=== PATIENT | female | born 1960 | race American Indian/Alaskan Native ===

== ENCOUNTER 2019-04-28 15:56 | Emergency (ER) | payer BC ==
--- NOTE | 2019-04-28 16:23 | EDM.PDOC ---
ED HPI GENERAL MEDICAL PROBLEM - General Chief Complaint: Gastrointestinal Problem Stated Complaint: FLU-LIKE SYMTOMS Time Seen by Provider: 04/28/19 16:20 Source of Information: Reports: Patient History Limitations: Reports: No Limitations - History of Present Illness INITIAL COMMENTS - FREE TEXT/NARRATIVE: patient presents with concern for ongoing diarrhea, feeling weak and unwell since last . A friend was sick with similar symptoms, as was her son, but both of them seemed to have improved. Symptoms included fever, slight runny nose, severe headache and pain behind her eyes, feeling short of breath, not really coughing. Feels a bit lightheaded when she gets up. Fever up to 101.6, but that has been gone since Saturday. Mostly now she has ongoing diarrhea , and some lower abdominal cramping. Every time she eats something, it seems to just come out the other side. No blood. Not foul smelling. Has had some mild nausea and some dry heaves, but that is less an issue now. She states her brain feels a little foggy and everything feels dry all over. No recent travel or different foods. History of gastric bypass. Remote history of (I think) NSAID induced ulcers, does not take NSAIDs now. No urinary symptoms, increased frequency or urgency. No abnormal vaginal discharge. Generalized Pain Score (Numeric/FACES): 4 - Related Data Allergies Allergy/AdvReac Type Severity Reaction Status Date / Time No Known Allergies Allergy Verified 04/28/19 17:24 Home Meds: Home Meds Cholecalciferol (Vitamin D3) [Vitamin D3] 1,000 unit PO DAILY 09/23/18 [History] Cyanocobalamin (Vitamin B-12) [B-12] 1,000 mcg PO DAILY 09/23/18 [History] Losartan/Hydrochlorothiazide [Losartan-HCTZ 100-25 MG] 1 each PO DAILY 09/23/18 [History] Magnesium Oxide [Magnesium] 400 mg PO DAILY 09/23/18 [History] Multivitamin with Minerals [Multiple Vitamin] 1 tab PO DAILY 09/23/18 [History] [place]-3/DHA/Epa/Fish Oil [[place]-3 Fish Oil 1,000 MG Sfgl] 1,000 mg PO DAILY 05/05 [History] amLODIPine Besylate [Amlodipine Besylate] 5 mg PO DAILY 11/06/18 [History] Past Medical History HEENT History: Reports: None Cardiovascular History: Reports: Hypertension Respiratory History: Reports: None Gastrointestinal History: Reports: Colon Polyp Genitourinary History: Reports: Renal Calculus DUST 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: Musculoskeletal History: Reports: Arthritis Neurological History: Reports: None Psychiatric History: Reports: None Endocrine/Metabolic History: Reports: Obesity/BMI 30+ Hematologic History: Reports: Anemia, Iron Deficiency Immunologic History: Reports: None Oncologic (Cancer) History: Reports: None Dermatologic History: Reports: None - Past Surgical History Head Surgeries/Procedures: Reports: None HEENT Surgical History: Reports: None Cardiovascular Surgical History: Reports: None Respiratory Surgical History: Reports: None GI Surgical History: Reports: Bariatric Procedure (2000, possible Lacey?), Colonoscopy, EGD Male Surgical History: Reports: Lithotripsy ([facility]) Endocrine Surgical History: Reports: None Neurological Surgical History: Reports: None Musculoskeletal Surgical History: Reports: None Oncologic Surgical History: Reports: None Social & Family History - Family History Family Medical History: Noncontributory - Tobacco Use Smoking Status *Q: Never Smoker - Caffeine Use Caffeine Use: Reports: Coffee, Tea - Alcohol Use Alcohol Use History: No Alcohol Use Comment: rare social - Recreational Drug Use Recreational Drug Use: No - Living Situation & Occupation Living situation: Reports: (lives with ) ED ROS GENERAL - Review of Systems Review Of Systems: See Below Constitutional: Reports: Fever (not since Saturday ), Chills, Malaise, Weakness, Fatigue, Decreased Appetite. Denies: Diaphoresis HEENT: Reports: Rhinitis. Denies: Throat Pain, Vertigo, Vision Change Respiratory: Reports: Shortness of Breath. Denies: Wheezing, Pleuritic Chest Pain, Cough Cardiovascular: Denies: Chest Pain, Palpitations, Syncope Endocrine: Denies: Polydypsia GI/Abdominal: Reports: Abdominal Pain, Diarrhea, Decreased Appetite, Nausea : Reports: No Symptoms Musculoskeletal: Reports: Muscle Pain Skin: Reports: No Symptoms Neurological: Reports: Headache. Denies: Confusion, Numbness, Tingling, Weakness, Gait Disturbance Hematologic/Lymphatic: Denies: Easy Bleeding, Easy Bruising Immunologic: Reports: No Symptoms ED EXAM, GENERAL - Physical Exam Exam: See Below Free Text/Narrative:: General: alert, no acute distress. tympanic membranes are clear bilaterally with normal light reflex and throat is without erythema, mucus membranes are moist. No sinus tenderness, no cervical lymphadenopathy. Lungs clear, no wheezes or crackles, good air movement in all harrison. Heart regular, no murmur heard. Abdomen + bowel sounds, soft, nondistended nontender, no rebound, negative ayoub's and McBurney's point. Peripheral pulses +2 in both upper and lower extremities, no lower extremity edema. Gait normal and strength equal side to side. No joint swelling and no skin lesions or rashes. Course - Vital Signs Text/Narrative:: initial impression - influenza like illness, no fever since Saturday, but still having copious diarrhea. Discussed convalescent phase of illness. She doesn't seem intravascularly dry, but we opted to start some IVF to see if will help her feel better. Will get labs also - CBC, BMP. Last Recorded V/S: Last Vital Signs Temp 36.8 C 04/28/19 17:25 Pulse 92 04/28/19 22:00 Resp 18 04/28/19 22:00 BP 102/72 04/28/19 22:00 Pulse Ox 100 04/28/19 22:00 - Orders/Labs/Meds Labs: Laboratory Tests 04/28/19 04/28/19 04/28/19 Range/Units 17:15 17:15 17:15 WBC 8.8 (4.5-12.0) X10-3/uL RBC 3.90 (3.23-5.20) x10(6)uL Hgb 12.3 (11.5-15.5) g/dL Hct 35.6 (30.0-51.3) % MCV 91.5 (80-96) fL MCH 31.7 (27.7-33.6) pg MCHC 34.6 (32.2-35.4) g/dL RDW 11.9 (11.5-15.5) % Plt Count 415 H (125-369) X10(3)uL MPV 7.4 (7.4-10.4) fL Neut % (Auto) 59.9 (46-82) % Lymph % (Auto) 24.7 (13-37) % [place] % (Auto) 12.8 H (4-12) % Eos % (Auto) 2 (1.0-5.0) % Baso % (Auto) 1 (0-2) % Neut # (Auto) 5.3 (1.6-8.3) # Lymph # (Auto) 2.2 (0.6-5.0) # [place] # (Auto) 1.1 (0.0-1.3) # Eos # (Auto) 0.2 (0.0-0.8) # Baso # (Auto) 0.0 (0.0-0.2) # Sodium 138 (135-145) mmol/L Potassium 2.7 L* (3.5-5.3) mmol/L Chloride 101 (100-110) mmol/L Carbon Dioxide 24 (21-32) mmol/L BUN 24 H (7-18) mg/dL Creatinine 1.5 H (0.55-1.02) mg/dL Est Cr Clr Drug Dosing TNP Estimated GFR (MDRD) 35 L (>60) BUN/Creatinine Ratio 16.0 (9-20) Glucose 115 (80-116) mg/dL Calcium 9.7 (8.6-10.2) mg/dL Magnesium 1.8 (1.8-2.5) mg/dL 04/28/19 Range/Units 21:30 WBC (4.5-12.0) X10-3/uL RBC (3.23-5.20) x10(6)uL Hgb (11.5-15.5) g/dL Hct (30.0-51.3) % MCV (80-96) fL MCH (27.7-33.6) pg MCHC (32.2-35.4) g/dL RDW (11.5-15.5) % Plt Count (125-369) X10(3)uL MPV (7.4-10.4) fL Neut % (Auto) (46-82) % Lymph % (Auto) (13-37) % [place] % (Auto) (4-12) % Eos % (Auto) (1.0-5.0) % Baso % (Auto) (0-2) % Neut # (Auto) (1.6-8.3) # Lymph # (Auto) (0.6-5.0) # [place] # (Auto) (0.0-1.3) # Eos # (Auto) (0.0-0.8) # Baso # (Auto) (0.0-0.2) # Sodium (135-145) mmol/L Potassium 3.5 (3.5-5.3) mmol/L Chloride (100-110) mmol/L Carbon Dioxide (21-32) mmol/L BUN (7-18) mg/dL Creatinine (0.55-1.02) mg/dL Est Cr Clr Drug Dosing Estimated GFR (MDRD) (>60) BUN/Creatinine Ratio (9-20) Glucose (80-116) mg/dL Calcium (8.6-10.2) mg/dL Magnesium (1.8-2.5) mg/dL Meds: Medications Discontinued Medications Generic Name Dose Route Start Last Admin Trade Name Freq PRN Reason Stop Dose Admin Sodium Chloride 1,000 mls @ 999 mls/hr 04/28/19 16:48 04/28/19 17:20 Normal Saline IV 04/28/19 17:48 999 mls/hr .BOLUS ONE Administration Potassium Chloride 20 meq/ 100 mls @ 50 mls/hr 04/28/19 18:22 04/28/19 18:30 Premix IV 04/28/19 20:21 50 mls/hr ONETIME ONE Administration Sodium Chloride 1,000 mls @ 125 mls/hr 04/28/19 18:30 04/28/19 21:13 Normal Saline IV 350 mls/hr ASDIRECTED BRYANT Infusion Magnesium Sulfate 2 gm/ Premix 50 mls @ 150 mls/hr 04/28/19 20:36 04/28/19 21 :08 IV 04/28/19 20:55 150 mls/hr ONETIME ONE Administration Ondansetron HCl 8 mg 04/28/19 18:21 04/28/19 18:28 Zofran IVPUSH 04/28/19 18:22 8 mg ONETIME ONE Administration Potassium Chloride 40 meq 04/28/19 18:30 04/28/19 19:28 Klor-Con M20 PO 40 meq DAILY BRYANT Administration - Re-Assessments/Exams Free Text/Narrative Re-Assessment/Exam: 04/28/19 critical lab called - K 2.7. Ordered 20meq K rider and 40meq PO ( zofran to be given first). Bolus running. Free Text/Narrative Re-Assessment/Exam: 04/29/19 patient feeling much better after fluids. Discussed possible admission vs discharge home but would like to see a higher K first. Agreeable to staying for lab draw following K rider. Will order Magnesium in the meantime to help replenish electrolytes. Free Text/Narrative Re-Assessment/Exam: 04/28/19 patient feeling much better, would like to go home. Repeat K 3.5. Probably slightly lower than this due to IV just finishing 30 min ago. Considered home PO supplement but patient is on Losartan, so instead will have recheck in 3 days by PCP. Discharge instructions given, return if worsening or if recurrent fever. She was in agreement with this plan and will call PCP in AM. Departure - Departure Time of Disposition: 21:55 Disposition: Home, Self-Care 01 Condition: Good Clinical Impression: Diarrhea, Hypokalemia - Discharge Information *PRESCRIPTION DRUG MONITORING PROGRAM REVIEWED*: Not Applicable *COPY OF PRESCRIPTION DRUG MONITORING REPORT IN PATIENT RAMANA: Not Applicable Instructions: Diarrhea, Adult, [id number] Referrals: Emily Gomez MOTORCYCLE TECHNICIAN [Primary Care Provider] - Forms: ED Department Discharge Additional Instructions: followup with PCP in about 3 days for a recheck of potassium continue other vitamins diet as tolerated - your diarrhea will probably not improved until you have some solid food, so if you are hungry then can try rice, toast, oatmeal, apples , something gentle to stomach continue to drink lots of fluid
[2019-04-28] MEDS ORDERED: Sodium Chloride 0.9% 1,000 ML IV ONE (16:48)
[2019-04-28] MEDS ORDERED: Ondansetron 4 MG/2 ML SDV IVPUSH ONE (18:21)
[2019-04-28] MEDS ORDERED: Potassium Chloride 20 MEQ in Premix Bag 1 BAG IV ONE (18:22)
[2019-04-28] MEDS ORDERED: Potassium Chloride 20 MEQ Tab.ER PO SCH (18:30)
[2019-04-28] MEDS ORDERED: Sodium Chloride 0.9% 1,000 ML IV SCH (18:30)
[2019-04-28] MEDS ORDERED: Magnesium Sulfate/Water 2 GM in Premix Bag 1 BAG IV ONE (20:36)
== END 2019-04-28 22:13 | disposition home or self-care (01) ==
LOC: FB.ED 15:56
DX: J11.1 Influenza due to unidentified influenza virus with other respiratory manifestations (principal); E87.6 Hypokalemia; R19.7 Diarrhea, unspecified; I10 Essential (primary) hypertension; D50.9 Iron deficiency anemia, unspecified; Z79.899 Other long term (current) drug therapy
CPT/HCPCS: 36415; 80048; 83735; 84132; 85025; 96361; 96365; 96366; 96367; 96375; 99284; A9270; J2405; J3475; J3480; J7030

== ENCOUNTER 2019-09-14 12:56 | Day surgery (SDC) | payer BC ==
[2019-09-14] MEDS ORDERED: Sodium Chloride 0.9% 250 ML IV SCH (13:15)
[2019-09-14] MEDS ORDERED: Lactated Ringers 1,000 ML IV ONE (15:00)
[2019-09-14] MEDS ORDERED: Furosemide 20 MG/2 ML VIAL IVPUSH ONE (15:00)
[2019-09-14] MEDS ORDERED: Midazolam 1 MG/ML 2 ML SDV IV ONE (15:00)
[2019-09-14] MEDS ORDERED: Lidocaine 2% 5 ML SDV INJECT ONE (15:00)
[2019-09-14] MEDS ORDERED: Propofol 200 MG/20 ML SDV IV ONE (15:00)
--- NOTE | 2019-09-14 15:43 | PCM.OPNOTE ---
- General Post-Op/Procedure Note Date of Surgery/Procedure: 09/14/19 Operative Procedure(s): EGD with Biopsy Findings: Acute but non bleeding Gastric Pouch ulcer at anastomosis Pre Op Diagnosis: UGI bleed Post-Op Diagnosis: Acute Gastric Ulcer Anesthesia Technique: MAC Primary Surgeon: David Pan Pathology: Biopsies of Gastric Pouch EBL in mLs: 2 Complications: None Condition: Good Free Text/Narrative:: Intake & Output 09/14/19 09/14/19 09/14/19 06:59 14:59 22:59 Intake Total 0 390 Balance 0 390
--- NOTE | 2019-09-14 21:39 | HP ---
ADMISSION DATE: 09/14/2019 HISTORY OF PRESENT ILLNESS: This 59-year-old female recently developed symptoms of tiredness and dark stools. She was seen in the outpatient clinic today where it was noted that her hemoglobin had dropped from over 12 to less than 10. The patient has been feeling quite tired and somewhat lightheaded even almost to the point of blacking out when she exerts herself. She has been noticing dark stools over the past 3 days and some nausea, although she has been able to eat. The patient notes that approximately 10 days ago, she began taking an anti- inflammatory medication for joint and extremity pain, and before she started taking this medicine, she was feeling well. The patient does have a known history of previous upper GI bleeds related to anti-inflammatory medication in the past. PAST MEDICAL HISTORY: Significant for prior gastric bypass in 2000. Her weight recently has been stable. CURRENT MEDICATIONS: Include; 1. Losartan. 2. Vitamins. 3. Amlodipine. 4. More recently, meloxicam. REVIEW OF SYSTEMS: She has otherwise generally been feeling well with no recent cough, cold, or sore throat symptoms. Bowel function has generally been satisfactory and she has not been experiencing any abdominal pain. She does have chronic recurring joint pain from arthritis and bursitis. PHYSICAL EXAMINATION: VITAL SIGNS: Her temperature is 98.2, pulse 68, blood pressure is 112/74. GENERAL: The patient is alert, adult female. She is in no acute distress. HEENT: Head is normocephalic. No scleral icterus. HEART: Regular. LUNGS: Clear. ABDOMEN: Soft. Nontender. No distention noted. IMPRESSION: 1. Upper gastrointestinal bleed. 2. History of gastric bypass. RECOMMENDATIONS: Advised EGD to which the patient agrees. She consents to proceed accepting risks. This will be scheduled today. /[id number] HETAL/MONO
--- NOTE | 2019-09-15 08:41 | OR ---
DATE OF OPERATION: 09/14/2019 SURGEON: David Pan MD PREOPERATIVE DIAGNOSIS: Upper gastrointestinal bleed. POSTOPERATIVE DIAGNOSES: 1. Gastric pouch ulcer. 2. History of Moshe-en-Y gastric bypass. OPERATION PERFORMED: Esophagogastroduodenoscopy with biopsy. INDICATIONS FOR SURGERY: This 59-year-old female recently was noted to have symptoms of tiredness and recently developed black stools and was identified to have anemia. She is referred for upper endoscopy because of a presumed upper GI bleed. FINDINGS: No active bleeding was seen on today's exam. The patient does have an acute ulcer approximately 8 mm in size located at the anastomosis between the gastric pouch and the jejunum. The patient's gastric pouch otherwise appears normal without other visible signs of inflammation or anatomic abnormalities. Her esophagus appears normal. The anastomosis is not narrowed because of this ulcer and is widely patent. The jejunum as visualized with the gastroscope appeared normal. PROCEDURE IN DETAIL: The patient was taken to the procedure room. She was given intravenous sedation, and with her in the left lateral decubitus position, the Olympus gastroscope was advanced through a mouth guard into the oropharynx. Carefully and under direct visualization, the scope was advanced into the esophagus and then down through the esophagus into the gastric pouch and then on into the jejunum. The jejunum was examined and appeared normal. The scope was withdrawn back into the gastric pouch, where examination identified the ulcer. No indication of active bleeding was noted at this time. Random biopsies of the pouch mucosa were taken to rule out H pylori. After examining the pouch, the GE junction and esophagus were re-examined as the scope was withdrawn. The scope was then removed, and the patient was taken from the procedure room in satisfactory condition. ESTIMATED BLOOD LOSS: 2 mL. COMPLICATIONS: None. PROGNOSIS: Good. /[id number] PW/MODL CC: ROCHELLE HOLLAND CNP
[2019-09-15] MEDS ORDERED: Sodium Chloride 0.9% 10 ML Syringe FLUSH PRN (15:00)
[2019-09-15] MEDS ORDERED: Lactated Ringers 1,000 ML IV SCH (15:00)
== END 2019-09-14 19:48 | disposition home or self-care (01) ==
LOC: FB.LAB 12:56 → FB.SDS 12:56
PROVIDERS: ATTEND Surgery
DX: K95.89 Other complications of other bariatric procedure (principal); K25.4 Chronic or unspecified gastric ulcer with hemorrhage; K29.51 Unspecified chronic gastritis with bleeding; I10 Essential (primary) hypertension; Z98.84 Bariatric surgery status; Z79.899 Other long term (current) drug therapy
CPT/HCPCS: 36415; 36430; 86850; 86900; 86901; 86920; 86922; 88305; 88342; J1940; J2001; J2250; J2704; J7050; J7120; P9016

== ENCOUNTER 2019-09-22 08:18 | Day surgery (SDC) | payer BC ==
[~2019-09-22 08:18] MED LIST: Sodium Chloride 0.9% 10 ML Syringe FLUSH PRN
[2019-09-22] MEDS ORDERED: Propofol 200 MG/20 ML SDV IV ONE (08:19)
[2019-09-22] MEDS ORDERED: Glycopyrrolate 0.2 MG/ML 5 ML MDV IV ONE (08:19)
[2019-09-22] MEDS ORDERED: Lidocaine 2% 5 ML SDV INJECT ONE (08:19)
[2019-09-22] MEDS: Lactated Ringers 1,000 ML IV SCH (09:20)
--- NOTE | 2019-09-22 10:12 | PCM.HPR ---
H & P Addendum review - H & P Addendum Review Date of Original H & P: 09/21/19 Date Reviewed: 09/22/19 Time Reviewed: 09:30 Patient was Examined: No Changes
--- NOTE | 2019-09-22 10:14 | PCM.OPNOTE ---
- General Post-Op/Procedure Note Date of Surgery/Procedure: 09/22/19 Operative Procedure(s): EGJ and Colonoscopy Findings: Both Normal Pre Op Diagnosis: Anemia, GI Bleed Post-Op Diagnosis: Same Anesthesia Technique: MAC Primary Surgeon: Mathew Walls Condition: Good
[2019-09-22 10:40] VITALS: BP 133/75; PULSE 51
--- NOTE | 2019-09-23 07:57 | OR ---
DATE OF OPERATION: 09/22/2019 SURGEON: Mathew Walls MD PREOPERATIVE DIAGNOSIS: Anemia secondary to GI bleed. POSTOPERATIVE DIAGNOSES: 1. Normal esophagogastroduodenoscopy. 2. Normal colonoscopy. PROCEDURE PERFORMED: 1. EGD. 2. Colonoscopy. ANESTHESIA: IV sedation. PROCEDURE IN DETAIL: Patient was brought to the procedure room, where she was placed on the left side and IV sedation administered. Oral bite block was placed and the upper endoscope advanced into the esophagus under direct vision without difficulty. Vocal cords were viewed and were normal. The scope was easily passed into the gastric remnant. Squamocolumnar junction appears normal. The remaining stomach looks normal. The gastrojejunostomy and anastomosis appeared normal, and the ulcer seen last week is no longer visible. I then advanced the scope into the jejunal limb for approximately 20 cm and no abnormalities were noted. No evidence of recent bleeding was seen. Air was removed and the scope withdrawn. The patient tolerated this portion of the procedure well. Next, colonoscopy was performed after digital rectal exam was done, which was normal. The colonoscope was inserted and advanced to the level of the cecum with some difficulty getting around the hepatic flexure, requiring some pressure on the abdomen. The cecum was reached and confirmed by identifying the appendiceal lumen and ileocecal valve. Prep was good and surfaces were well visualized. Upon withdrawing the scope, the ascending, transverse, and descending colon were normal in appearance. The sigmoid colon and rectum were normal. Retroflexion was normal. Air was removed and the scope withdrawn. The patient tolerated the procedure well and returned to recovery in stable condition. Recommend routine colon screening in 10 years. /[id number] RUBIA/MONO CC: ROCHELLE HOLLAND NP
== END 2019-09-22 11:00 | disposition home or self-care (01) ==
LOC: FB.SDS 08:18
PROVIDERS: ATTEND Surgery
DX: D50.0 Iron deficiency anemia secondary to blood loss (chronic) (principal); K92.2 Gastrointestinal hemorrhage, unspecified; I10 Essential (primary) hypertension; Z79.899 Other long term (current) drug therapy
CPT/HCPCS: J2001; J2704; J3490; J7120